=== PATIENT | female | born 1995 | race Caucasian/White ===

== ENCOUNTER 2020-06-24 22:15 | Observation (INO) | payer BC, SELFPAY ==
[~2020-06-24] VITALS: Ht 162.6 cm; Wt 78.5 kg
[2020-06-24] MEDS ORDERED: PNV91TAB8 PO (22:35)
[2020-06-24] MEDS ORDERED: LACTATED RINGERS 1,000 ML IV SCH (22:40)
[2020-06-24] MEDS ORDERED: LACTATED RINGERS 500 ML IV SCH (22:40)
--- NOTE | 2020-06-25 09:12 | NUR ---
PATIENT HAS BEEN SCREENED AND CATEGORIZED LOW NUTRITION RISK. PATIENT WILL BE SEEN WITHIN 7 DAYS OF ADMISSION. 07/01/[address]
== END 2020-06-25 08:15 | disposition home or self-care (01) ==
LOC: MLD 22:15
PROVIDERS: ADMIT Obstetrics & Gynecology; ATTEND Obstetrics & Gynecology
DX: O62.9 Abnormality of forces of labor, unspecified (principal); Z20.822 Contact with and (suspected) exposure to COVID-19; O32.1XX0 Maternal care for breech presentation, not applicable or unspecified; O69.81X0 Labor and delivery complicated by cord around neck, without compression, not applicable or unspecified; O99.513 Diseases of the respiratory system complicating pregnancy, third trimester; J45.909 Unspecified asthma, uncomplicated; Z91.010 Allergy to peanuts; Z91.013 Allergy to seafood; Z3A.29 29 weeks gestation of pregnancy
CPT/HCPCS: 59025; 81000; 87426; 93005; G0378; J7120

== ENCOUNTER 2020-09-04 14:51 | Inpatient (IN) | payer BC, SELFPAY ==
[~2020-09-04] VITALS: Ht 162.6 cm; Wt 83.0 kg
[~2020-09-04 14:51] MED LIST: PNV91TAB8 PO
[2020-09-04] MEDS ORDERED: NALBUPHINE 10 MG/ML AMP IVP PRN (15:20)
[2020-09-04] MEDS ORDERED: OXYTOCIN 10 UNITS/ML VIAL IM SCH (15:20)
[2020-09-04] MEDS ORDERED: PROMETHAZINE 25 MG/ML VIAL IVP PRN (15:20)
[2020-09-04] MEDS ORDERED: METHYLERGONOVINE 0.2 MG/ML AMP IM PRN (15:20)
[2020-09-04] MEDS ORDERED: CARBOPROST 250 MCG/ML AMP IM PRN (15:20)
[2020-09-04] MEDS ORDERED: AMPICILLIN 2,000 MG in NACL 0.9% MINI-BAG PLUS 100 ML IV SCH (15:30)
[2020-09-04] MEDS ORDERED: OXYTOCIN 20 UNITS/LR PREMIX 1,000 ML IV ONE ×2 (15:44→15:59)
[2020-09-04 16:04] LABS: BASOPHILS % (AUTO) 0.2 % (0.0-2.0); EOSINOPHILS # (AUTO) 0.1 K/uL (0-0.4); EOSINOPHILS % (AUTO) 0.6 % (0.0-4.0); HEMATOCRIT 37.7 % (36-48); HEMOGLOBIN 12.6 g/dL (12.0-16.0); LYMPHOCYTES # (AUTO) 1.6 K/uL (2.5-16.5); LYMPHOCYTES % (AUTO) 19.3 % (20.5-51.1); MEAN CORPUSCULAR HEMOGLOBIN 29 pg (27-31); MEAN CORPUSCULAR HGB CONC 33 g/dL (33-37); MONOCYTES # (AUTO) 0.6 K/uL (0.8-1.0); MONOCYTES % (AUTO) 7.4 % (1.7-9.3); NEUTROPHILS # (AUTO) 5.8 K/uL (1.8-7.7); NEUTROPHILS % (AUTO) 72.5 % (42.2-75.2); PLATELET COUNT (AUTO) 249 K/uL (140-450); RED BLOOD CELL COUNT(AUTO) 4.38 MIL/uL (4.20-5.40); RED CELL DISTRIBUTION WIDTH 13.8 % (11.6-13.7); WHITE BLOOD COUNT (AUTO) 8.1 K/uL (4.8-10.8)
[2020-09-04 16:04] LABS: APPEARANCE,URINE CLEAR (CLEAR); BILIRUBIN,URINE NEGATIVE (NEGATIVE); BLOOD, URINE NEGATIVE (NEGATIVE); COLOR,URINE YELLOW (YELLOW); LEUKOCYTE ESTERASE ,URINE NEGATIVE (NEGATIVE); NITRITE, URINE NEGATIVE (NEGATIVE); UGLUCOSE NEGATIVE (NEGATIVE)
[2020-09-04 16:26] LABS: ALBUMIN 2.9 g/dL (3.4-5.0); ANION GAP 12.9 (8-16); CARBON DIOXIDE 22.7 mmol/L (21-32); CREATININE 0.8 mg/dL (0.6-1.3); POTASSIUM 3.6 mmol/L (3.5-5.1); TOTAL BILIRUBIN 0.2 mg/dL (0.0-1.0)
[2020-09-04] MEDS ORDERED: AMPICILLIN 2,000 MG VIAL ONE (16:54)
[2020-09-04] MEDS ORDERED: AMPICILLIN 1,000 MG VIAL ONE (20:49)
[2020-09-04] MEDS: AMPICILLIN 1,000 MG in NACL 0.9% MINI-BAG PLUS 50 ML IV SCH (21:00)
[2020-09-05] MEDS ORDERED: AMPICILLIN 1,000 MG VIAL ONE ×4 (00:42→20:04)
[2020-09-05] MEDS: LACTATED RINGERS 1,000 ML IV SCH ×3 (00:52→22:01)
[2020-09-05] MEDS: AMPICILLIN 1,000 MG in NACL 0.9% MINI-BAG PLUS 50 ML IV SCH ×3 (03:57→16:27)
--- NOTE | 2020-09-05 07:17 | NUR ---
PATIENT HAS BEEN SCREENED AND CATEGORIZED LOW NUTRITION RISK. PATIENT WILL BE SEEN WITHIN 7 DAYS OF ADMISSION. 09/11/[address]
[2020-09-05] MEDS ORDERED: SHARK OIL/PHENYLEPHRINE 60 GM TUBE TP PRN (18:10)
[2020-09-05] MEDS ORDERED: fentaNYL citrate 0.05 MG/ML VIAL ONE (22:13)
[2020-09-05] MEDS ORDERED: fentaNYL citrate 0.05 MG/ML VIAL IVP SCH ×2 (22:15→22:20)
[2020-09-05] MEDS ORDERED: ROPIVACAINE 0.2%/NS PREMIX 200 ML EPI ONE (22:18)
[2020-09-06] MEDS ORDERED: AMPICILLIN 1,000 MG VIAL ONE ×2 (00:10→04:03)
[2020-09-06] MEDS: LACTATED RINGERS 1,000 ML IV SCH (04:20)
[2020-09-06] MEDS ORDERED: ROPIVACAINE 0.2%/NS PREMIX 200 ML EPI ONE (07:51)
[2020-09-06] MEDS ORDERED: fentaNYL citrate 0.05 MG/ML VIAL ONE (07:52)
[2020-09-06] MEDS ORDERED: OXYTOCIN 20 UNITS/LR PREMIX 1,000 ML IV ONE (12:09)
[2020-09-06] MEDS ORDERED: IBUPROFEN 600 MG TAB PO PRN ×2 (13:45)
[2020-09-06] MEDS ORDERED: SIMETHICONE 80 MG TAB.CHEW PO PRN ×2 (13:45)
[2020-09-06] MEDS ORDERED: METHYLERGONOVINE 0.2 MG TAB PO PRN ×2 (13:45)
[2020-09-06] MEDS ORDERED: METHYLERGONOVINE 0.2 MG/ML AMP IM PRN (13:45)
[2020-09-06] MEDS ORDERED: BENZOCAINE/MENTHOL 20%-0.5% 60 GM CAN TP PRN ×2 (13:45)
[2020-09-06] MEDS ORDERED: IBUPROFEN 800 MG TAB PO PRN ×2 (13:45)
[2020-09-06] MEDS ORDERED: bisacodyL 5 MG TABEC PO PRN ×2 (13:45)
[2020-09-06] MEDS ORDERED: DOCUSATE SODIUM 100 MG GELCAP PO PRN ×2 (13:45)
[2020-09-06] MEDS ORDERED: OXYTOCIN 10 UNITS/ML VIAL IM PRN ×2 (13:45)
[2020-09-07 09:07] LABS: HEMATOCRIT 28.6 % (36-48); HEMOGLOBIN 9.3 g/dL (12.0-16.0)
== END 2020-09-08 14:15 | disposition home or self-care (01) | DRG 807 ==
LOC: MLD 14:51 → MFCC 09-06 16:16
PROVIDERS: ADMIT Obstetrics & Gynecology; ATTEND Obstetrics & Gynecology
PROC: 10E0XZZ Delivery of Products of Conception, External Approach (ICD-10-PCS; principal; 2020-09-06)
PROC: 3E0R3BZ Introduction of Anesthetic Agent into Spinal Canal, Percutaneous Approach (ICD-10-PCS; 2020-09-06)
PROC: 00HU33Z Insertion of Infusion Device into Spinal Canal, Percutaneous Approach (ICD-10-PCS; 2020-09-06)
PROC: 10907ZC Drainage of Amniotic Fluid, Therapeutic from Products of Conception, Via Natural or Artificial Opening (ICD-10-PCS; 2020-09-06)
PROC: 3E0234Z Introduction of Serum, Toxoid and Vaccine into Muscle, Percutaneous Approach (ICD-10-PCS; 2020-09-06)
DX: O99.824 Streptococcus B carrier state complicating childbirth (principal); Z37.0 Single live birth; Z3A.40 40 weeks gestation of pregnancy; Z23 Encounter for immunization
CPT/HCPCS: 36415; 51702; 59409; 80053; 81003; 85018; 85025; 86592; 86886; 86900; 86901; J0290; J2590; J2795; J3010